=== PATIENT | female | born 1960 | race Caucasian/White ===

== ENCOUNTER 2021-03-23 16:46 | Emergency (ER) | payer BC, OTHER ==
[2021-03-23 16:56] VITALS: BP 138/83; PULSE 80; TEMP 97; BMI 26.5
[2021-03-23] MEDS ORDERED: ACETAMINOPHEN 1000 MG/100 ML VIAL (NON FORMULARY) IVPB ONE (18:12)
[2021-03-23] MEDS ORDERED: ACETAMINOPHEN INJECTION 100 ML IVPB ONE (18:42)
[2021-03-23 19:10] LABS: BASO % 1.1 % (0-2.0); EOS % 3.4 % (0-4.5); HEMATOCRIT 34.2 % (32.4-45.2); HEMOGLOBIN 11.4 GM/dL (10.7-15.3); LYMPH % 35.2 % (8-40); MCHC 33.3 g/dl (32.0-36.0); MEAN CELL VOLUME 78.2 fl (80-96); MEAN PLT VOLUME 7.9 fl (7.5-11.1); MONO % 9.2 % (3.8-10.2); NEUT % 51.1 % (42.8-82.8); PLATELET COUNT 316 K/MM3 (134-434); RBC 4.38 M/mm3 (3.60-5.2); RDW 17.5 % (11.6-15.6); WHITE BLOOD COUNT 4.7 K/mm3 (4.0-10.0)
[2021-03-23 19:17] LABS: INR 1.03 (0.83-1.09); PROTHROMBIN TIME (PATIENT) 12.7 SEC (9.7-13.0)
[2021-03-23 19:20] LABS: ACTIVATED PTT 28.7 SECONDS (25.2-36.5)
[2021-03-23 19:38] LABS: ALBUMIN 3.5 g/dl (3.4-5.0); BLOOD UREA NITROGEN 13.8 mg/dL (7-18); CALCIUM 8.5 mg/dL (8.5-10.1)
[2021-03-23 19:42] LABS: CREATININE 0.6 mg/dL (0.55-1.3)
[2021-03-23 19:43] LABS: BILIRUBIN,TOTAL 0.2 mg/dL (0.2-1); TOT PROT 6.5 g/dl (6.4-8.2)
== END 2021-03-23 20:57 | disposition home or self-care (01) ==
LOC: JER 16:46
PROC: 3E0333Z Introduction of Anti-inflammatory into Peripheral Vein, Percutaneous Approach (ICD-10-PCS; principal; 2021-03-23)
DX: N93.8 Other specified abnormal uterine and vaginal bleeding (principal)
CPT/HCPCS: 36415; 76830-TC; 80053; 85025; 85610; 85730; 86850; 86900; 86901; 93005; 93010; 96374; 99285-25; J0131

== ENCOUNTER 2021-05-12 04:44 | Day surgery (SDC) | payer OTHER ==
[2021-05-07 15:00] VITALS: BMI 30.2
[2021-05-12] MEDS ORDERED: ROCURONIUM BROMIDE 50 MG/5 ML SYRINGE ONE ×3 (07:52→11:29)
[2021-05-12] MEDS ORDERED: LIDOCAINE HCL/PF 2% SDV 5ML VIAL ONE (07:52)
[2021-05-12] MEDS ORDERED: PROPOFOL 20 ML ONE (07:52)
[2021-05-12] MEDS ORDERED: MIDAZOLAM HCL 2 MG/2 ML SINGLE DOSE VIAL ONE (07:52)
[2021-05-12] MEDS ORDERED: ceFAZolin 2 GRAM PREMIX BAG IVPB ONE (09:45)
[2021-05-12] MEDS ORDERED: BUPIVACAINE HCL/PF 0.5% (5MG/ML) 10 ML VIAL ONE (09:54)
[2021-05-12] MEDS ORDERED: METHYLENE BLUE 50 MG/10 ML AMPUL ONE (09:58)
[2021-05-12] MEDS ORDERED: BUPIVACAINE HCL/PF 0.5% (5 MG/ML) 30 ML VIAL IJ ONE ×2 (10:17→12:40)
[2021-05-12] MEDS ORDERED: ONDANSETRON 4 MG/2 ML VIAL IVPUSH PRN (10:24)
[2021-05-12] MEDS ORDERED: oxyCODONE HCL 5 MG TABLET PO PRN ×4 (10:24→13:04)
[2021-05-12] MEDS ORDERED: LACTATED RINGERS SOLUTION 1,000 ML IV SCH (10:30)
[2021-05-12] MEDS ORDERED: NEOSTIGMINE METHYLSULFATE 0.5 MG/ML - 10 ML MDV ONE (12:39)
[2021-05-12] MEDS ORDERED: IBUPROFEN 600 MG TABLET (FP) PO SCH (13:15)
[2021-05-12] MEDS ORDERED: ACETAMINOPHEN INJECTION 100 ML IVPB ONE (13:43)
[2021-05-12] MEDS: ACETAMINOPHEN 1000 MG/100 ML VIAL (NON FORMULARY) IVPB PRN ×2 (13:45→21:09)
[2021-05-12] MEDS: IBUPROFEN 800 MG/8 ML IJ IVPB PRN (16:32)
[2021-05-13] MEDS: IBUPROFEN 800 MG/8 ML IJ IVPB PRN (00:03)
[2021-05-13] MEDS: IBUPROFEN 600 MG TABLET (FP) PO SCH ×2 (05:57→12:26)
[2021-05-13] MEDS: ACETAMINOPHEN 1000 MG/100 ML VIAL (NON FORMULARY) IVPB PRN (06:17)
[2021-05-13 08:50] LABS: HEMATOCRIT 29.8 % (32.4-45.2); HEMOGLOBIN 9.6 GM/dL (10.7-15.3); MCH 24.3 pg (25.7-33.7); MEAN CELL VOLUME 75.8 fl (80-96); MEAN PLT VOLUME 7.7 fl (7.5-11.1); PLATELET COUNT 285 10^3/uL (134-434); RBC 3.94 M/mm3 (3.60-5.2); RDW 16.3 % (11.6-15.6); WHITE BLOOD COUNT 10.3 K/mm3 (4.0-10.0)
[2021-05-13 09:42] VITALS: BP 124/69; PULSE 88; TEMP 98.1
[2021-05-13] MEDS ORDERED: ACETAMINOPHEN 325 MG TABLET (FP) PO PRN (12:45)
[2021-05-13 12:59] LABS: CREATININE 0.5 mg/dL (0.55-1.3)
== END 2021-05-13 15:05 | disposition home or self-care (01) ==
LOC: JASU-SURG 04:44 → J3W 15:30 → JASU-SURG 05-13 15:05
PROVIDERS: ATTEND Obstetrics & Gynecology
PROC: 0UT7FZZ Resection of Bilateral Fallopian Tubes, Via Natural or Artificial Opening With Percutaneous Endoscopic Assistance (ICD-10-PCS; 2021-05-12)
PROC: 0UT9FZZ Resection of Uterus, Via Natural or Artificial Opening With Percutaneous Endoscopic Assistance (ICD-10-PCS; principal; 2021-05-12 09:00)
PROC: 0UT2FZZ Resection of Bilateral Ovaries, Via Natural or Artificial Opening With Percutaneous Endoscopic Assistance (ICD-10-PCS; 2021-05-12 09:00)
DX: N92.0 Excessive and frequent menstruation with regular cycle (principal); N94.6 Dysmenorrhea, unspecified; N80.0 Endometriosis of uterus; N72 Inflammatory disease of cervix uteri; N83.202 Unspecified ovarian cyst, left side; N83.292 Other ovarian cyst, left side; N83.201 Unspecified ovarian cyst, right side
CPT/HCPCS: 36415; 82565; 85027; 88307-TC; 94010; 94760; J0131; Q9968